=== PATIENT | female | born 1970 | race Caucasian/White ===

== ENCOUNTER 2024-12-17 10:47 | Observation (INO) | payer BC ==
[2024-12-17] MEDS ORDERED: Sodium Chloride 0.9% 10 ML Syringe FLUSH PRN (11:16)
[2024-12-17 11:56] LABS: BASOPHILS ABSOLUTE AUTO 0.1 K/mm3 (0.0-0.2); BASOPHILS PERCENT AUTO 1.1 % (0.0-1.0); EOSINOPHILS ABSOLUTE AUTO 0.4 K/mm3 (0.0-0.4); EOSINOPHILS PERCENT AUTO 3.9 % (0.0-6.0); HEMATOCRIT 31.4 % (37.0-47.0); HEMOGLOBIN 8.9 gm/dl (12.0-16.0); IMMATURE GRAN ABSOLUTE AUTO 0.05 K/mm3 (0.00-0.05); IMMATURE GRAN PERCENT AUTO 0.5 % (0.0-0.4); LYMPHOCYTES ABSOLUTE AUTO 1.6 K/mm3 (1.0-4.8); LYMPHOCYTES PERCENT AUTO 16.4 % (24.0-44.0); MEAN CORPUSCULAR HEMOGLOBIN 19.2 pg (28.0-32.0); MEAN CORPUSCULAR HGB CONC 28.3 g/dl (32.0-36.0); MEAN CORPUSCULAR VOLUME 67.7 fl (83.0-99.0); MEAN PLATELET VOLUME 8.9 fl (9.4-12.3); MONOCYTES ABSOLUTE AUTO 0.9 K/mm3 (0.0-0.8); MONOCYTES PERCENT AUTO 8.9 % (0.0-8.0); NEUTROPHILS ABSOLUTE AUTO 6.9 K/mm3 (1.8-7.7); NEUTROPHILS PERCENT AUTO 69.2 % (41.0-71.0); PLATELET COUNT,PLT 445 K/mm3 (150-400); RED BLOOD CELL COUNT 4.64 M/mm3 (4.10-5.30); WHITE BLOOD CELL COUNT,WBC 10.01 K/mm3 (3.9-11.3)
[2024-12-17 12:22] LABS: A/G RATIO 0.9 (1-2); ALBUMIN 3.3 g/dl (3.4-5.0); ANION GAP 12.8 (5-15); BILIRUBIN TOTAL 0.3 mg/dL (0.2-1.0); BUN/CREATININE RATIO 7.3 (14-18); C-REACTIVE PROTEIN 0.53 mg/dL (<0.30); CALCIUM 8.7 mg/dL (8.5-10.1); CREATININE 1.1 mg/dL (0.55-1.02); EST CRCL DRUG DOSING (CG) 58.18 mL/min; MAGNESIUM 1.8 mg/dL (1.8-2.4); POTASSIUM,K 3.8 mEq/L (3.5-5.1); PROTEIN TOTAL,TP 7.1 g/dl (6.4-8.2); SLIDE REVIEW ABNORMAL SMEAR; TSH 2.566 uIU/mL (0.358-3.74)
[2024-12-17 13:17] LABS: IRON,FE 13 ug/dL (50-170); PERCENT FE SATURATION 3 % (20-55); TRANSFERRIN 312 mg/dL (202-364)
[2024-12-17 13:20] LABS: TOTAL IRON BINDING CAPACITY 390 ug/dL (100-400)
[2024-12-17] MEDS: Sodium Chloride 0.9% 1,000 ML IV SCH (14:39)
[2024-12-17] MEDS ORDERED: Sodium Ferric Gluconate Cmplex 125 MG in Sodium Chloride 0.9% 100 ML IV ONE (15:36)
[2024-12-17] MEDS ORDERED: Ondansetron 4 MG Tab.DIS PO PRN (16:01)
[2024-12-17] MEDS ORDERED: Acetaminophen 325 MG Tab PO PRN (16:01)
[2024-12-17] MEDS ORDERED: Docusate Sodium 100 MG Cap PO PRN (16:01)
[2024-12-17] MEDS ORDERED: amLODIPine 5 MG Tab PO SCH (16:30)
[2024-12-17] MEDS: Sodium Ferric Gluconate Cmplex 125 MG in Sodium Chloride 0.9% 100 ML IV ONE (16:31)
[2024-12-17] MEDS: Enoxaparin 40 MG/0.4 ML Syringe SUBCUT SCH (16:36)
[2024-12-17] MEDS: droPERidol 2.5 MG/ML SDV IV ONE (16:37)
[2024-12-17] MEDS ORDERED: hydrOXYzine HCl 25 MG Tab PO PRN (16:58)
[2024-12-17] MEDS: Magnesium Oxide 400 MG Tab PO ONE (17:10)
[2024-12-17] MEDS: Losartan 50 MG Tab PO SCH (17:11)
[2024-12-17] MEDS: Potassium Chloride 20 MEQ Tab.ER PO ONE (17:11)
[2024-12-17 18:20] LABS: BARBITURATE SCREEN,URINE NEGATIVE (CUTOFF=200); BENZODIAZEPINES SCREEN,URINE NEGATIVE (CUTOFF=150); BUPRENORPHINE SCREEN,URINE NEGATIVE (CUTOFF=10); METHADONE SCREEN, URINE NEGATIVE (CUTOFF=200); METHAMPHETAMINES SCREEN, URINE NEGATIVE (CUTOFF=500); OXYCODONE SCREEN,URINE NEGATIVE (CUT0FF=100); THC SCREEN,URINE 20 NG/ML NEGATIVE (CUTOFF=50)
[2024-12-17 18:24] LABS: AMPHETAMINES SCREEN, URINE NEGATIVE (CUTOFF=500)
[2024-12-17] MEDS ORDERED: LORazepam 2 MG/ML SDV IVPUSH PRN (18:35)
[2024-12-17] MEDS: Folic Acid 1 MG Tab PO SCH (21:05)
[2024-12-17] MEDS: Thiamine 200 MG/2 ML MDV IVPUSH SCH (21:05)
[2024-12-18] MEDS: LORazepam 2 MG/ML SDV IVPUSH ONE (02:41)
[2024-12-18] MEDS: Topiramate 25 MG Tab PO ONE (02:41)
[2024-12-18] MEDS: QUEtiapine 25 MG Tab PO SCH (02:41)
[2024-12-18 05:25] LABS: HEMATOCRIT 28.5 % (37.0-47.0); HEMOGLOBIN 8.1 gm/dl (12.0-16.0)
[2024-12-18 05:44] LABS: HEMOGLOBIN A1C 6.3 %
[2024-12-18] MEDS: Topiramate 25 MG Tab PO SCH (08:25)
[2024-12-18] MEDS: Vitamin B6-pyridOXINE 50 MG Tab PO SCH (09:45)
[2024-12-18 10:16] LABS: FOLIC ACID 20.7 ng/mL (8.6-58.9)
[2024-12-18] MEDS ORDERED: droPERidol 2.5 MG/ML SDV IV ONE (11:20)
[2024-12-18] MEDS ORDERED: Losartan 50 MG Tab PO SCH (17:00)
[2024-12-18] MEDS ORDERED: Cyanocobalamin (Vitamin B12) 1,000 MCG Tab PO SCH (21:00)
[2024-12-19] MEDS ORDERED: Cholecalciferol (Vitamin D3) 25 MCG Tab PO SCH (09:00)
[2024-12-19] MEDS ORDERED: Cyanocobalamin (Vitamin B12) 1,000 MCG Tab PO SCH (21:00)
== END 2024-12-18 14:18 | disposition home or self-care (01) ==
LOC: JD.ED 10:47 → JD.MS 16:01
PROVIDERS: ADMIT Student in an Organized Health Care Education/Training Program; ATTEND Student in an Organized Health Care Education/Training Program
DX: D50.9 Iron deficiency anemia, unspecified (principal); D25.9 Leiomyoma of uterus, unspecified; I10 Essential (primary) hypertension; F41.9 Anxiety disorder, unspecified; F32.89 Other specified depressive episodes; R73.9 Hyperglycemia, unspecified
CPT/HCPCS: 36415; 70450; 80053; 80306; 80307; 82272; 82306; 82607; 82746; 82947; 83036; 83540; 83735; 83880; 84443; 84466; 84484; 85014; 85018; 85025; 86140; 86850; 86900; 86901; 87428; 93005; A9270; J2916; J3411; J7030; Q3014